=== PATIENT | female | born 2000 | race Caucasian/White ===

== ENCOUNTER 2021-12-16 02:16 | Emergency (ER) | payer OTHER ==
[~2021-12-16] VITALS: Ht 160 cm; Wt 54.4 kg
[2021-12-16 02:30] VITALS: BP 117/76
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
[2021-12-16] MEDS ORDERED: CYCLOBENZAPRINE 10 MG TABLET PO ONE (03:00)
[2021-12-16] MEDS ORDERED: KETOROLAC TROMETHAMINE INJ 30 MG/ML VIAL IM ONE (03:00)
[2021-12-16] MEDS ORDERED: LIDOCAINE 5% (PATCH) 1 EA PATCH TP SCH (03:00)
[2021-12-16] MEDS ORDERED: CYCLOBENZAPRINE 10 MG TABLET ONE (03:03)
[2021-12-16] MEDS ORDERED: KETOROLAC TROMETHAMINE 15 MG/ML VIAL ONE (03:03)
[2021-12-16] MEDS ORDERED: LIDOCAINE 5% (PATCH) 1 EA PATCH TP ONE (03:12)
[2021-12-16] MEDS ORDERED: NAPR-1164 PO (03:13)
[2021-12-16] MEDS ORDERED: LIDO30AD10 TP (03:13)
== END 2021-12-16 03:15 | disposition home or self-care (01) ==
LOC: ER 02:16
DX: S16.1XXA Strain of muscle, fascia and tendon at neck level, initial encounter (principal); S46.812A Strain of other muscles, fascia and tendons at shoulder and upper arm level, left arm, initial encounter; S70.12XA Contusion of left thigh, initial encounter; Z60.2 Problems related to living alone; V49.49XA Driver injured in collision with other motor vehicles in traffic accident, initial encounter; Y93.89 Activity, other specified; Y92.413 State road as the place of occurrence of the external cause; Y99.8 Other external cause status
CPT/HCPCS: 96372; 99283; J1885